=== PATIENT | female | born 1955 | race Two or more races ===

== ENCOUNTER 2017-11-10 14:26 | Emergency (ER) | payer OTHER ==
[2017-11-10] MEDS: PHENAZOPYRIDINE 100 MG TAB PO (15:15)
[2017-11-10] MEDS: OLANZAPINE (ODT) 5 MG TAB ODT (15:15)
[2017-11-10 15:33] LABS: ADD UMIC YES; UR ASCORBIC ACID NEGATIVE (NEGATIVE); UR BILIRUBIN (Dip) NEGATIVE (NEGATIVE); UR BLOOD (Dip) NEGATIVE (NEGATIVE); UR CLARITY CLEAR (CLEAR); UR COLOR YELLOW (YELLOW); UR GLUCOSE (Dip) 3+ mg/dL (NEGATIVE); UR KETONES (Dip) TRACE mg/dL (NEGATIVE); UR LEUKOCYTE ESTERASE (Dip) NEGATIVE Leu/ul (NEGATIVE); UR NITRITE (Dip) NEGATIVE (NEGATIVE); UR RBC 1 /HPF (0-5); UR TOTAL PROTEIN (Dip) 2+ mg/dl (NEGATIVE); UR UROBILINOGEN (Dip) NEGATIVE (NEGATIVE); UR WBC 0 /HPF (0-5)
== END 2017-11-10 17:09 | disposition home or self-care (01) ==
LOC: E/R 14:26
DX: R33.9 Retention of urine, unspecified (principal); E11.9 Type 2 diabetes mellitus without complications; Z79.84 Long term (current) use of oral hypoglycemic drugs
CPT/HCPCS: 51702; 81001; 87086; 99283-25

== ENCOUNTER 2018-02-28 18:07 | Emergency (ER) | payer OTHER ==
[2018-02-28 18:38] LABS: ADD MAN DIFF? NO
[2018-02-28 18:40] LABS: BASOPHILS % 0.4 % (0.0-2.0); EOSINOPHILS # 0.2 10^3/ul (0.0-0.5); EOSINOPHILS % 1.8 % (0.0-7.0); HEMATOCRIT 40.9 % (37.0-47.0); HEMOGLOBIN 14.5 g/dl (12.0-16.0); LYMPHOCYTES # 3.5 10^3/ul (0.8-2.9); MEAN CORPUSCULAR HEMOGLOBIN 29.1 pg (29.0-33.0); MEAN CORPUSCULAR HGB CONC 35.5 g/dl (32.0-37.0); MEAN PLATELET VOLUME 9.4 fl (7.4-10.4); MONOCYTE # 0.5 10^3/ul (0.3-0.9); MONOCYTES % 4.5 % (0.0-11.0); PLATELET COUNT 363 10^3/UL (140-415); RED BLOOD COUNT 4.99 10^6/ul (4.20-5.40); RED CELL DISTRIBUTION WIDTH 11.5 % (11.5-14.5)
[2018-02-28 18:40] LABS: WHITE BLOOD COUNT 11.2 10^3/ul (4.8-10.8)
[2018-02-28 18:59] LABS: ALANINE AMINOTRANSFERASE 22 IU/L (13-69); ALBUMIN 4.4 g/dl (3.3-4.9); ALBUMIN/GLOBULIN RATIO 1.02; ALKALINE PHOSPHATASE 135 IU/L (42-121); ANION GAP 18 (8-16); ASPARTATE AMINO TRANSFERASE 21 IU/L (15-46); BILIRUBIN,INDIRECT 0.3 mg/dl (0-1.1); BILIRUBIN,TOTAL 0.3 mg/dl (0.2-1.3); BLOOD UREA NITROGEN 23 mg/dl (7-20); CALCIUM 10.5 mg/dl (8.4-10.2); CARBON DIOXIDE 27 mmol/L (21-31); CHLORIDE 100 mmol/L (97-110); CREATININE 0.54 mg/dl (0.44-1.00); GLUCOSE 333 mg/dl (70-220); LIPASE 77 U/L (23-300); POTASSIUM 4.8 mmol/L (3.5-5.1); SODIUM 140 mmol/L (135-144); TOTAL PROTEIN 8.7 g/dl (6.1-8.1)
[2018-02-28 19:10] LABS: TROPONIN-I < 0.012 ng/ml (0.000-0.120)
[2018-02-28] MEDS: KETOROLAC 15 MG INJ IV (19:11)
[2018-02-28] MEDS: SOD CHLORIDE 0.9% 1,000 ML IV (19:11)
[2018-02-28] MEDS: LORAZEPAM 0.5 MG TAB PO (19:49)
[2018-02-28] MEDS: OXYCODONE/ACETAMINOPHEN (5/325) TAB PO (19:55)
== END 2018-02-28 20:50 | disposition home or self-care (01) ==
LOC: E/R 18:07
DX: F32.9 Major depressive disorder, single episode, unspecified (principal); F41.9 Anxiety disorder, unspecified; E11.9 Type 2 diabetes mellitus without complications; G20 Parkinson's disease; Z79.84 Long term (current) use of oral hypoglycemic drugs
CPT/HCPCS: 36415; 71045; 80053; 83690; 84484; 85025; 93005; 96374; 99284-25